=== PATIENT | male | born 1960 | race Caucasian/White ===

== ENCOUNTER 2022-09-20 08:19 | Day surgery (SDC) | payer OTHER ==
[2022-09-16 13:51] LABS: BASOPHILS % (AUTO) 1.5 % (0.0-5.0); EOSINOPHILS % (AUTO) 11.2 % (0.0-8.0); HEMATOCRIT 38.5 % (42-54); LYMPHOCYTES % (AUTO) 22.1 % (21.0-51.0); MEAN CORPUSCULAR HEMOGLOBIN 32.3 pg (27.0-33.0); MEAN CORPUSCULAR VOLUME 95.1 fL (79-99); MONOCYTES % (AUTO) 7.1 % (3.0-13.0); NEUTROPHILS % (AUTO) 57.3 % (40.0-77.0); PLATELET COUNT (AUTO) 376 K/uL (130-400); RED BLOOD CELL COUNT(AUTO) 4.05 MIL/uL (4.50-6.20); RED CELL DISTRIBUTION WIDTH 12.4 % (11.0-15.5); WHITE BLOOD COUNT (AUTO) 15.7 K/uL (4.8-10.8)
[2022-09-16 14:09] LABS: B-TYPE NATRIURETIC PEPTIDE 110 pg/mL (0-100)
[2022-09-16 14:12] LABS: CREATININE 0.9 mg/dL (0.5-1.5); POTASSIUM 4.5 mmol/L (3.5-5.1)
[2022-09-16 14:14] LABS: INR 0.93 (0.85-1.15); PROTHROMBIN TIME 9.9 SEC (9.6-11.6)
[2022-09-16 14:16] LABS: PARTIAL THROMBOPLASTIN TIME 26.3 SEC (26.3-35.5)
[2022-09-16 14:40] VITALS: BP 75/52
[2022-09-16 14:41] VITALS: BP 77/47
[2022-09-16 16:17] LABS: APPEARANCE,URINE CLEAR (CLEAR); BILIRUBIN,URINE NEGATIVE (NEGATIVE); GLUCOSE, URINE (UA) NEGATIVE (NEGATIVE); KETONES,URINE NEGATIVE (NEGATIVE); LEUKOCYTE ESTERASE ,URINE NEGATIVE Leu/uL (NEGATIVE); NITRATE,URINE NEGATIVE (NEGATIVE); OCCULT BLOOD,URINE NEGATIVE (NEGATIVE); PROTEIN,URINE NEGATIVE (NEGATIVE); UROBILINOGEN,URINE 0.2 mg/dL (0.2-1.0)
[2022-09-16 16:26] LABS: COLOR,URINE YELLOW (YELLOW)
[~2022-09-20] VITALS: Ht 177.8 cm; Wt 79.9 kg
[2022-09-20] VITALS (16 sets, daily range): BP systolic 107–151; BP diastolic 59–95
[~2022-09-20 08:19] MED LIST: 0.9% NACL 500ML IV.SOLN 500 ML IV SCH; ALPR2TAB7 PO; ASPI-1197 PO; CLOP75TA32 PO; GABA600T10 PO; IPRA4AER PO; ISOS60TA77 PO; LOSA50TA64 PO; METO50TA18 PO; NITR0.4T50 SL; OXYC30TA2 PO; PRED-904 PO
[2022-09-20] MEDS ORDERED: MEPERIDINE-PF 25 MG/ML SYG ONE (11:11)
[2022-09-20] MEDS ORDERED: LIDOCAINE HCL 400MG/20ML VIAL ONE (11:11)
[2022-09-20] MEDS ORDERED: MIDAZOLAM HCL 1 MG/ML 2ML VIAL ONE ×3 (11:12→12:37)
[2022-09-20] MEDS ORDERED: IOHEXOL 350 MG/ML 100ML INFUS..BTL IV ONE (11:12)
[2022-09-20] MEDS ORDERED: HEPARIN 10,000 UNIT/10ML (1,000 UNIT/ML) VIAL ONE (11:12)
[2022-09-20] MEDS ORDERED: NITROGLYCERIN 50MG VIAL ONE (11:12)
[2022-09-20] MEDS ORDERED: BIVALIRUDIN 250 MG/VIAL IV ONE (11:43)
[2022-09-20] MEDS ORDERED: CLOPIDOGREL 300MG TAB ONE (12:47)
[2022-09-20] MEDS ORDERED: GLUCAGON 1MG KIT 1 MG ML IM PRN (13:00)
[2022-09-20] MEDS ORDERED: ACETAMINOPHEN WITH CODEINE 1 TAB TAB PO PRN (13:00)
[2022-09-20] MEDS ORDERED: DEXTROSE 50%-WATER 50 ML DISP.SYRIN IV PRN (13:00)
[2022-09-20] MEDS ORDERED: ATROPINE 1MG SYG IVP ONE (14:33)
== END 2022-09-20 18:10 | disposition home or self-care (01) ==
LOC: DAH 08:19
PROVIDERS: ATTEND Internal Medicine Cardiovascular Disease
DX: I25.110 Atherosclerotic heart disease of native coronary artery with unstable angina pectoris (principal); I11.0 Hypertensive heart disease with heart failure; I50.31 Acute diastolic (congestive) heart failure; E78.5 Hyperlipidemia, unspecified; I25.2 Old myocardial infarction; M06.9 Rheumatoid arthritis, unspecified; F17.210 Nicotine dependence, cigarettes, uncomplicated; Z95.5 Presence of coronary angioplasty implant and graft; Z98.890 Other specified postprocedural states; Z90.89 Acquired absence of other organs; Z82.49 Family history of ischemic heart disease and other diseases of the circulatory system; Z83.3 Family history of diabetes mellitus; Z72.89 Other problems related to lifestyle; Z79.02 Long term (current) use of antithrombotics/antiplatelets; Z79.82 Long term (current) use of aspirin; Z79.01 Long term (current) use of anticoagulants; Z79.899 Other long term (current) drug therapy
CPT/HCPCS: 80048; 83880; 85025; 85610; 85730; 81003; 36415; 71045; 93005; 92978; 93458; C9600; C1769 ×2; C1887; C1894 ×2; C1753; C1874 ×2; C1725 ×3; J7040; J3490 ×2; J0461; J2250 ×3; J1644; J0583; Q9967; A4215; A6402; A4657; A4222; A4221; A4663; A4216; A4606; Q9965 ×2; A4223 ×3; 99156; 99157; J2175